=== PATIENT | female | born 2000 | race Caucasian/White ===

== ENCOUNTER → 2020-09-28 08:38 | Outpatient (CLI) | payer BC | END | disposition home or self-care (01) | LOC: LAB 08:38 | PROVIDERS: ATTEND Emergency Medicine Pediatric Emergency Medicine | DX: Z03.818 Encounter for observation for suspected exposure to other biological agents ruled out (principal) ==

== ENCOUNTER → 2020-10-10 08:50 | Outpatient (CLI) | payer BC | END | disposition home or self-care (01) | LOC: LAB 08:50 | PROVIDERS: ATTEND Emergency Medicine Pediatric Emergency Medicine | DX: Z03.818 Encounter for observation for suspected exposure to other biological agents ruled out (principal) ==

== ENCOUNTER 2020-10-24 08:35 | Outpatient (CLI) | payer BC | END 2020-10-24 08:36 | disposition home or self-care (01) | LOC: LAB 08:35 | PROVIDERS: ATTEND Emergency Medicine Pediatric Emergency Medicine | DX: Z03.818 Encounter for observation for suspected exposure to other biological agents ruled out (principal) ==